=== PATIENT | male | born 1945 | race Two or more races ===

== ENCOUNTER 2022-12-14 05:33 | Inpatient (IN) | payer OTHER ==
[~2022-12-14] VITALS: Ht 162.6 cm; Wt 82.1 kg
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
--- NOTE | 2022-12-14 06:14 | NUR ---
BLOODWORK COLLECTED AND SENT TO LAB
--- NOTE | 2022-12-14 06:14 | NUR ---
EKG COMPLETED AT BEDSIDE
--- NOTE | 2022-12-14 06:21 | NUR ---
URINE COLLECTED AND SENT TO LAB
--- NOTE | 2022-12-14 06:37 | NUR ---
PT TO XR, CT - ACCOMPANIED BY TECH
--- NOTE | 2022-12-14 06:57 | NUR ---
PT RETURNED FROM RADIOLOGY
--- NOTE | 2022-12-14 07:00 | NUR ---
COVID SWAB OBTAINED, PROCESSED, AND RESULTED NEGATIVE
[2022-12-14 07:07] LABS: BILIRUBIN,URINE 1+ (NEGATIVE); COLOR,URINE DARK YELLOW (YELLOW); LEUKOCYTE ESTERASE ,URINE NEGATIVE (NEGATIVE); NITRITE, URINE NEGATIVE (NEGATIVE); PH,URINE 5.5 (5.0-8.0); PROTEIN,URINE 3+ mg/dl (NEGATIVE); UGLUCOSE TRACE mg/dL (NEGATIVE)
--- NOTE | 2022-12-14 07:09 | NUR ---
REPORT GIVEN TO STACIE RODRIGUEZ RN FOR CONTINUITY OF CARE
[2022-12-14 07:19] LABS: BACTERIA,URINE Rare /HPF (None Seen); HYALINE CASTS, URINE Few /LPF (None Seen); SQUAMOUS EPITHELIAL CELL,UR Moderate /HPF (None Seen); WBC,URINE 0-2 /HPF (0-3)
[2022-12-14 07:38] LABS: BASOPHILS % (AUTO) 0.8 % (0.0-2.0); EOSINOPHILS % (AUTO) 1.3 % (0.0-6.0); HEMATOCRIT 41 % (39-51); HEMOGLOBIN 13.4 g/dL (13.5-17.5); MEAN CORPUSCULAR HGB CONC 33 g/dl (31.0-36.0); MEAN CORPUSCULAR VOLUME 98 fL (80-96); MONOCYTES # (AUTO) 0.5 K/uL (0.1-1.30); MONOCYTES % (AUTO) 9.4 % (2.0-12.0); NEUTROPHILS # (AUTO) 4.1 K/uL (1.8-8.9); NEUTROPHILS % (AUTO) 71.5 % (43.0-81.0); PLATELET COUNT (AUTO) 167 K/uL (150-450); RED BLOOD CELL COUNT(AUTO) 4.17 MIL/uL (4.5-6.0); WHITE BLOOD COUNT (AUTO) 5.7 K/uL (4.3-11.0)
[2022-12-14 07:48] LABS: CALCIUM, SERUM 8.8 mg/dL (8.5-10.1); CARBON DIOXIDE 22 mmol/L (21-32); CHLORIDE 109 mmol/L (98-107); CREATININE 1.5 mg/dL (0.6-1.3); GLUCOSE 122 mg/dL (74-106); POTASSIUM 3.8 mmol/L (3.5-5.1); SODIUM SERUM 142 mmol/L (136-145); UREA NITROGEN, BLOOD 34 mg/dL (7-18)
--- NOTE | 2022-12-14 07:53 | NUR ---
MOVE SHEET SUBMITTED.
[2022-12-14 07:55] LABS: ALANINE AMINOTRANSFERASE 34 U/L (12-78); ALBUMIN 2.8 g/dL (3.4-5.0); ALCOHOL, BLOOD 3 mg/dL (0-0); ALKALINE PHOSPHATASE 73 U/L (46-116); ASPARTATE AMINOTRANSFERASE 33 U/L (15-37); BILIRUBIN,DIRECT 0.5 mg/dL (0.0-0.2); BILIRUBIN,TOTAL 1.2 mg/dL (0.2-1.0); TOTAL PROTEIN, SERUM 6.8 g/dL (6.4-8.2)
[2022-12-14] MEDS ORDERED: FUROSEMIDE 20 MG/2 ML VIAL IV ONE (08:00)
[2022-12-14] MEDS ORDERED: ASPIRIN 81 MG TAB.CHEW PO ONE (08:00)
[2022-12-14] MEDS ORDERED: ASPIRIN 81 MG TAB.CHEW ONE (08:03)
[2022-12-14] MEDS ORDERED: FUROSEMIDE 20 MG/2 ML VIAL ONE (08:03)
[2022-12-14] MEDS ORDERED: ALLO300T2 PO (09:30)
[2022-12-14] MEDS ORDERED: TRIA80CR12 TP (09:30)
[2022-12-14] MEDS ORDERED: FURO40TA5 PO (09:30)
[2022-12-14] MEDS ORDERED: CARV3.122 PO (09:30)
[2022-12-14] MEDS ORDERED: OXYB10TA30 PO (09:30)
[2022-12-14] MEDS ORDERED: PANT40TA49 PO (09:30)
[2022-12-14] MEDS ORDERED: ATOR40TA PO (09:30)
[2022-12-14] MEDS ORDERED: CLOP75TA15 PO (09:30)
[2022-12-14] MEDS ORDERED: CHOL100062 PO (09:30)
[2022-12-14] MEDS ORDERED: FERR325T24 PO (09:30)
[2022-12-14] MEDS ORDERED: FINA5TAB11 PO (09:30)
[2022-12-14] MEDS ORDERED: TAMS-12 PO (09:30)
[2022-12-14] MEDS ORDERED: LINA5TAB PO (09:30)
[2022-12-14] MEDS ORDERED: MAGN200T9 PO (09:31)
--- NOTE | 2022-12-14 10:01 | NUR ---
ASSISTED PT TO REST ROOM. AMBULATORY WITH STEADY GAIT.
--- NOTE | 2022-12-14 11:00 | NUR ---
GOT BED 324-1 ADMITTING INFORMED.
--- NOTE | 2022-12-14 11:06 | NUR ---
REPORT GIVEN TO GIGI DEL RIO
[2022-12-14 12:00] VITALS: BP 120/76
--- NOTE | 2022-12-14 12:00 | NUR ---
CDL B DRIVER NOTE PATIENT ADMITTED TO UNIT VIA RNEY AT 1118 ACCOMPANIED BY INVESTMENT BANKING ASSOCIATE WITH DIAGNOSIS OF ALTERED MENTAL STATUS. PT IS A/O X 0-1, ABLE TO MAKE NEEDS KNOWN. PT ORIENTED TO STAFF AND ROOM. V/S TAKEN AND RECORDED. ON ROOM AIR, TOLERATING WELL. NO SIGN OF ACUTE RESPIRATORY DISTRESS NOTED. HOOKED TO PROJECTION WELDING MACHINE OPERATOR WITH CURRENT READING OF SR-63. PHOTOS OF SKIN ISSUES TAKEN AND FILED ON HIS CHART. NOTED BILATERAL EDEMA IN THE LOWER EXTREMITY. IV ACCESS IN LAC #18G, C/D/I. RE-ORIENTED TO STAFF. SAFETY PRECAUTIONS IMPLEMENTED: BED IN LOWEST LOCKED POSITION, CALL LIGHT AND TRAY TABLE WITHIN EASY REACH, SIDE RAILS X 3. WILL CONTINUE TO MONITOR.
[2022-12-14] MEDS ORDERED: ZOLPIDEM TARTRATE 5 MG TABLET PO PRN (14:00)
[2022-12-14] MEDS ORDERED: ACETAMINOPHEN 325 MG TABLET PO PRN (14:00)
[2022-12-14] MEDS ORDERED: ONDANSETRON HCL/PF 4 MG/2 ML VIAL IVP PRN (14:00)
[2022-12-14] MEDS ORDERED: MAGNESIUM HYDROXIDE 30 ML UDC PO PRN (14:00)
[2022-12-14] MEDS ORDERED: MAG HYDROX/AL HYDROX/SIMETH 30 ML UDC PO PRN (14:00)
[2022-12-14] MEDS ORDERED: HYDROCODONE/APAP 5/325MG TABLET PO PRN (14:00)
[2022-12-14 16:00] VITALS: BP 141/74
[2022-12-14] MEDS ORDERED: DEXTROSE 50%-WATER 50 ML DISP.SYRIN IV PRN (18:30)
[2022-12-14] MEDS ORDERED: TRIAMCINOLONE ACETONIDE 0.1% CR 15 GM TUBE TP PRN (18:30)
--- NOTE | 2022-12-14 18:48 | NUR ---
COMPENSATION SPECIALIST CLOSING NOTE PATIENT RESTING IN BED. A/O X 1-2, TAJIK SPEAKER, ABLE TO MAKE NEEDS KNOWN. RE-ORIENTED REGULARLY. ON ROOM AIR, TOLERATED WELL. ON CHIEF ORTHOPTIST WITH CURRENT READING OF SR-70. IV ACCESS IN LAC #18G, SL, C/D/I. NEEDS ATTENDED. SAFETY PRECAUTIONS IMPLEMENTED: BED IN LOWEST LOCKED POSITION, CALL LIGHT AND TRAY TABLE WITHIN EASY REACH, SIDE RAILS X 3. WILL ENDORSE AGATHA TO FIRE EXTINGUISHER INSTALLER.
--- NOTE | 2022-12-14 19:15 | NUR ---
MANAGER PROVIDER RELATIONS NOTES RECEIVED LYING ON BED,SLEEPING WITH HOB ELEVATED,AROUSABLE TO VERBAL/TOUCH STIMULI.BREATHING REGULAR,NOT IN ANY FORM OF DISTRESS.NOTED ATE 100% OF HIS DINNER FOOD.WITH SALINE LOCK RIGHT AC INTACT AND PATENT.FALL RISK,BED ON LOWEST POSITION AND LOCKED,BED ALARM,ASSIST WITH ADL'S.CALL LIGT IN REACH,NEEDS ANTICIPATED.
[2022-12-14 20:00] VITALS: BP 134/84
[2022-12-14] MEDS: HEPARIN SODIUM, PORCINE 5000 UNITS/1 ML VIAL SQ SCH (21:06)
[2022-12-14] MEDS: BLOOD SUGAR DIAGNOSTIC 1 EACH STRIP VI SCH (21:45)
--- NOTE | 2022-12-14 22:00 | NUR ---
FRUIT AND VEGETABLE PARER NOTES ACCU-CHECK BLOOD SUGAR CHECK 186,COVERED WITH HUMULIN R 3UBITS PER SLIDING SCALE.
[2022-12-14] MEDS: *INSULIN REGULAR(HUMULIN R)HUM 100 UNIT/ML VIAL SQ PRN (22:10)
[2022-12-14] MEDS: Z GUARD REMEDY 4 OZ OINT TP PRN (22:11)
--- NOTE | 2022-12-14 23:12 | NUR ---
HAND BOX COVERER NOTES SR- 86 ON TELE MONITOR.CALM AND QUIET ON BED,BREATHING NON LABORED.DUE MEDS ADMINISTERED.ENDORSED TO SOHAIL DEL RIO FOR AGATHA.
--- NOTE | 2022-12-14 23:30 | NUR ---
CONCHE OPERATOR NOTE RECEIVED PATIENT FROM IMAN RN; PATIENT IN BED, A/O X 2-3, ABLE TO MAKE NEEDS KNOWN, THAI SPEAKING BUT CAN UNDERSTAND LITTLE MOROCCAN; STABLE ON ROOM AIR BREATHING EVENLY AND NO S/S OF DISTRESS NOTED; HOOKED TO QA REVIEWER CURRENTLY READING SINUS RHYTHM; WITH IV ACCESS ON RAC G#18 SALINE LOCK; HOB ELEVATED, MAINTAINED ON ASPIRATION PRECAUTION; SAFETY MEASURES IMPLEMENTED, BED IN LOW AND LOCKED POSITION, SIDE RAILS UP X 4, BED ALARM ON, CALL LIGHT WITHIN REACH; WILL CONTINUE TO MONITOR THROUGHOUT SHIFT
[2022-12-15 00:08] VITALS: BP 127/90
[2022-12-15 04:58] VITALS: BP 129/91
[2022-12-15] MEDS: INSULIN REGULAR, HUMAN 100 UNIT/ML 3 ML VIAL SQ PRN ×2 (06:22→12:08)
[2022-12-15] MEDS: BLOOD SUGAR DIAGNOSTIC 1 EACH STRIP VI SCH ×4 (06:33→21:40)
--- NOTE | 2022-12-15 06:50 | NUR ---
DINKEY BRAKEMAN CLOSING NOTE PATIENT IN BED, A/O X 2-3, ABLE TO MAKE NEEDS KNOWN, URDU SPEAKING BUT CAN UNDERSTAND LITTLE PAKISTANI; STABLE ON ROOM AIR BREATHING EVENLY AND NO S/S OF DISTRESS NOTED; HOOKED TO TITLE ASSISTANT CURRENTLY READING SINUS RHYTHM; WITH IV ACCESS ON RAC G#18 SALINE LOCK, INTACT AND PATENT; HOB ELEVATED, MAINTAINED ON ASPIRATION PRECAUTION; ADMINISTERED MEDICATIONS PRESCRIBED; PATIENT'S NEEDS ATTENDED; MONITORED PATIENT ACCORDINGLY; SAFETY MEASURES IMPLEMENTED, BED IN LOW AND LOCKED POSITION, SIDE RAILS UP X 4, BED ALARM ON, CALL LIGHT WITHIN REACH; WILL ENDORSE TO AM NURSE FOR AGATHA.
--- NOTE | 2022-12-15 07:20 | NUR ---
MARTIAL ARTS INSTRUCTOR OPENING NOTE PATIENT WAS RECEIVED IN BED ASLEEP WITH VISIBLE CHEST EXTENSION. AROUSAL TO VERBAL STIMULI, A/O X2 UKRAINIAN SPEAKING, UNDERSTANDING LITTLE MAURITANIAN, ABLE TO RESPOND TO QUESTION/ COMMANDS. NO S/S OF PAIN NOTED AT THIS TIME. ON ROOM AIR, IN HIGH FOWLERS. NO S/S OF SOB. IV ACCESS RAC G18, INTACT AND PATENT. PATIENT WITH EXTERNAL MONITOR WITH CURRENT READING OF SR 72 , NO CARDIAC DISTRESSED NOTED. FALL AND SAFETY PRECAUTIONS IN PLACE: BED AT THE LOWEST POSITION, LOCKED WITH SRX2 AND CALL LIGHT WITHIN REACH.
[2022-12-15 07:22] LABS: BASOPHILS % (AUTO) 0.6 % (0.0-2.0); EOSINOPHILS % (AUTO) 0.8 % (0.0-6.0); HEMATOCRIT 41 % (39-51); HEMOGLOBIN 13.3 g/dL (13.5-17.5); LYMPHOCYTES # (AUTO) 0.8 K/uL (0.8-4.8); LYMPHOCYTES % (AUTO) 14.9 % (20.0-44.0); MEAN CORPUSCULAR HGB CONC 32 g/dl (31.0-36.0); MEAN CORPUSCULAR VOLUME 101 fL (80-96); MONOCYTES # (AUTO) 0.4 K/uL (0.1-1.30); MONOCYTES % (AUTO) 7.9 % (2.0-12.0); NEUTROPHILS # (AUTO) 4.2 K/uL (1.8-8.9); NEUTROPHILS % (AUTO) 75.8 % (43.0-81.0); PLATELET COUNT (AUTO) 171 K/uL (150-450); RED BLOOD CELL COUNT(AUTO) 4.09 MIL/uL (4.5-6.0); WHITE BLOOD COUNT (AUTO) 5.6 K/uL (4.3-11.0)
[2022-12-15] MEDS ORDERED: PANTOPRAZOLE 40 MG TABLET.DR PO SCH (07:30)
[2022-12-15 07:59] LABS: SERUM AMMONIA 11 umol/L (11-32)
[2022-12-15 08:00] VITALS: BP 134/88
[2022-12-15 08:11] LABS: CHOLESTEROL 161 mg/dL (<200); HDL CHOLESTEROL 59 mg/dL (40-60); LDL 97 mg/dL (0-99); THYROID STIMULATING HORMONE 9.546 uIU/mL (0.358-3.74); TRIGLYCERIDES 69 mg/dL (30-150)
[2022-12-15 08:13] LABS: CALCIUM, SERUM 8.7 mg/dL (8.5-10.1); CARBON DIOXIDE 23 mmol/L (21-32); CHLORIDE 105 mmol/L (98-107); CREATININE 1.4 mg/dL (0.6-1.3); GLUCOSE 129 mg/dL (74-106); MAGNESIUM 2.2 mg/dL (1.8-2.4); PHOSPHORUS 4.4 mg/dL (2.5-4.9); POTASSIUM 3.7 mmol/L (3.5-5.1); SODIUM SERUM 137 mmol/L (136-145); UREA NITROGEN, BLOOD 33 mg/dL (7-18)
[2022-12-15] MEDS: PANTOPRAZOLE 40 MG TABLET.DR PO SCH (08:25)
[2022-12-15] MEDS: ALLOPURINOL 100 MG TABLET PO SCH (08:26)
[2022-12-15] MEDS: CHOLECALCIFEROL 1,000 UNIT TABLET (VIT D3) PO SCH (08:26)
[2022-12-15] MEDS: ASPIRIN 81 MG TAB.CHEW PO SCH (08:27)
[2022-12-15] MEDS: FINASTERIDE (5 MG) 5 MG TABLET PO SCH (08:28)
[2022-12-15] MEDS: ATORVASTATIN 40 MG TABLET PO SCH (08:28)
[2022-12-15] MEDS: LINAGLIPTIN 5 MG TABLET PO SCH (08:28)
[2022-12-15] MEDS: OXYBUTYNIN CHLORIDE ER 5 MG TAB PO SCH (08:28)
[2022-12-15] MEDS: CLOPIDOGREL BISULFATE 75 MG TABLET PO SCH (08:28)
[2022-12-15] MEDS: CARVEDILOL 3.125 MG TABLET PO SCH ×2 (08:29→17:10)
[2022-12-15] MEDS ORDERED: FUROSEMIDE 40 MG/4 ML VIAL IV SCH (09:00)
[2022-12-15] MEDS ORDERED: MAGNESIUM OXIDE 200 MG PO SCH (09:00)
[2022-12-15] MEDS ORDERED: FERROUS SULFATE (325 MG) 325 MG/TAB TABLET PO SCH (09:00)
--- NOTE | 2022-12-15 09:00 | NUR ---
CHAIR FRAME BUILDER- CRITICAL LAB RESULT CRITICAL LAB RESULT WAS REPORTED BY BELEM Alex @0817, TROPONIN 194. LAB WAS VERBALLY REPORTED TO DR. DENSON AND AND VERBAL ACKNOWLEDGMENT WAS MADE.
--- NOTE | 2022-12-15 09:00 | NUR ---
LLAIT NOTE- NON ADMIN MEDICATION HELD ALL B/P MEDICATION. PATIENT HAD HEMODIALYSIS PROCEDURE SCHEDULED TODAY. B/P 135/48. Addendum: 12/15/22 at 1026 by LLUVIA BINGHAM LVN CORRECTION WRONG PATIENT.
[2022-12-15] MEDS: TAMSULOSIN 0.4 MG CAP.SR.24H PO SCH ×2 (09:45→09:50)
[2022-12-15] MEDS: HEPARIN SODIUM, PORCINE 5000 UNITS/1 ML VIAL SQ SCH ×2 (09:46→21:19)
--- NOTE | 2022-12-15 09:50 | NUR ---
WEB DEVELOPER NOTE- NOT ADMIN MEDICATION PATIENT REFUSED MEDICATION TAMSULOSIN. EXPLAINED BENEFIT OF MEDICATION PATIENT STILL REFUSED. WASTED MEDICATION IN MEDICATION WASTE ROOM. WASTE WITNESS BY QUANG ARAGON.
[2022-12-15] MEDS ORDERED: POTASSIUM CHLORIDE 20 MEQ TAB.PRT.SR PO SCH (11:00)
[2022-12-15] MEDS: FUROSEMIDE 40 MG/4 ML VIAL IV SCH ×3 (11:23→18:56)
[2022-12-15 12:00] VITALS: BP_SYST 107
[2022-12-15] MEDS: POTASSIUM CHLORIDE 20 MEQ POWDER PACKET PO SCH ×3 (12:03→14:56)
[2022-12-15 16:00] VITALS: BP 120/81
--- NOTE | 2022-12-15 19:00 | NUR ---
RN OPENING NOTE PT IS AWAKE, SITTING IN BED. A/O 3, GARBLED SPEECH AND COMMUNICATE THRU WRITING,. PT IS IN RA TOLERATING WELL, BREATHING EVEN AND UNLABORED AT THIS TIME. PT IV PRESENT IS ON LEFT AC #18G SALINE LOCK. PATENT, INTACT AND FLUSHES WELL W/ NO S&SX OF INFILTRATION @ SITE NOTED. SAFETY MEASURES IN PLACE. BED IN LOWEST AND LOCKED POSITION. SIDE RAILS X 2. BEDSIDE TABLE AND CALL LIGHT IS EASY REACH. WILL CONTINUE TO MOINTOR PT ACCORDINGLY. Addendum: 12/16/22 at 0150 by KRISTIAN CORREA RN WRONG PATIENT.
--- NOTE | 2022-12-15 19:00 | NUR ---
RN OPENING NOTE PT IS AWAKE, SITTING IN BED. A/O 1-2, MOHAWK SPEAKING. PT IS IN RA TOLERATING WELL, BREATHING EVEN AND UNLABORED AT THIS TIME. PT IV PRESENT IS ON RIGHT AC #18G SALINE LOCK. PATENT, INTACT AND FLUSHES WELL W/ NO S&SX OF INFILTRATION @ SITE NOTED. PT IS ON URINAL W/ URINE OUTPUT 250CC. SAFETY MEASURES IN PLACE, BED IN LOWEST AND LOCKED POSITION. SIDE RAILS X 2. BEDSIDE TABLE AND CALL LIGHT IS EASY REACH. WILL CONTINUE TO MONITOR PT ACCORDINGLY.
--- NOTE | 2022-12-15 19:02 | NUR ---
SUMMER LAW CLERK CLOSING NOTE PATIENT IS AWAKE IN BED. ON ROOM AIR, A/Ox2 SWEDISH SPEAKING, UNDERSTANDING LITTLE HUNGARIAN, ABLE TO RESPOND TO QUESTIONS/ COMMANDS. NO S/S OF PAIN NOTED AT THIS TIME. IN HIGH FOWLERS. LABORED BREATHING NOTED, O2 97%. BLE SWELLING, COLD TO TOUCHED, PURPLISH COLOR, WAS INFORMED AND ACKNOWLEDGE. BLE DOPPLER ORDERED. IV ACCESS RAC G18, INTACT AND PATENT. PATIENT WITH EXTERNAL MONITOR WITH CURRENT READING OF SR 62. FALL AND SAFETY PRECAUTIONS MAINTAINED: BED AT THE LOWEST POSITION, LOCKED WITH SRX2 AND CALL LIGHT WITHIN REACH. ENDORSED TO THE PLUG GROWER NURSE.
[2022-12-15 20:00] VITALS: BP 115/80
[2022-12-15] MEDS: *INSULIN REGULAR(HUMULIN R)HUM 100 UNIT/ML VIAL SQ PRN (21:44)
[2022-12-16] VITALS (7 sets, daily range): BP systolic 104–127; BP diastolic 56–95
[2022-12-16] MEDS: BLOOD SUGAR DIAGNOSTIC 1 EACH STRIP VI SCH ×4 (06:31→22:15)
[2022-12-16] MEDS: INSULIN REGULAR, HUMAN 100 UNIT/ML 3 ML VIAL SQ PRN ×2 (06:35→12:25)
--- NOTE | 2022-12-16 06:41 | NUR ---
RN CLOSING NOTE PT IS ASLEEP & RESTING COMFORTABLY IN BED. A/O 1-2, RESPONSIVE AND FOLLOWS VERBAL COMMAND. PT IS IN 2L O2 VIA NASAL CANNULA, TOLERATING WELL, BREATHING EVEN AND UNLABORED AT THIS TIME. PT IV PRESENT IS ON RIGHT AC #18G SALINE LOCK. PATENT, INTACT AND FLUSHES WELL W/ NO S&SX OF INFILTRATION @ SITE NOTED. PT IS ON TELE MONITOR WITH CURRENT READING OF SINUS RHYTHM HR 63. PT IS ON URINAL W/ URINE OUTPUT 450 CC & 2 VOIDS @ THE RESTROOM. ADMINISTERED MEDICATION ACCORDINGLY PER MD'S ORDER. SAFETY MEASURES IN PLACE, BED IN LOWEST AND LOCKED POSITION. SIDE RAILS X 2. BEDSIDE TABLE AND CALL LIGHT IS EASY REACH. WILL ENDORSE TO THE NEXT SHIFT FOR AGATHA.
[2022-12-16 07:01] LABS: BILIRUBIN,URINE NEGATIVE (NEGATIVE); COLOR,URINE YELLOW (YELLOW); LEUKOCYTE ESTERASE ,URINE NEGATIVE (NEGATIVE); NITRITE, URINE NEGATIVE (NEGATIVE); PH,URINE 5.5 (5.0-8.0); PROTEIN,URINE NEGATIVE (NEGATIVE); UGLUCOSE NEGATIVE (NEGATIVE); UROBILINOGEN,URINE 0.2 EU/dL (0.2)
[2022-12-16 07:25] LABS: BASOPHILS % (AUTO) 0.6 % (0.0-2.0); EOSINOPHILS % (AUTO) 0.8 % (0.0-6.0); HEMATOCRIT 41 % (39-51); HEMOGLOBIN 13.4 g/dL (13.5-17.5); LYMPHOCYTES # (AUTO) 0.8 K/uL (0.8-4.8); LYMPHOCYTES % (AUTO) 16.6 % (20.0-44.0); MEAN CORPUSCULAR HGB CONC 33 g/dl (31.0-36.0); MEAN CORPUSCULAR VOLUME 101 fL (80-96); MONOCYTES # (AUTO) 0.3 K/uL (0.1-1.30); MONOCYTES % (AUTO) 7.1 % (2.0-12.0); NEUTROPHILS # (AUTO) 3.7 K/uL (1.8-8.9); NEUTROPHILS % (AUTO) 74.9 % (43.0-81.0); PLATELET COUNT (AUTO) 145 K/uL (150-450); WHITE BLOOD COUNT (AUTO) 4.9 K/uL (4.3-11.0)
[2022-12-16] MEDS: PANTOPRAZOLE 40 MG TABLET.DR PO SCH ×2 (07:30→08:46)
--- NOTE | 2022-12-16 07:30 | NUR ---
BILLING SPECIALIST OPENING NOTE Patient in bed, awake. A/O x 1-2, Luxembourgish speaking. On O2 at 2 LPM via NC, breathing evenly and unlabored. No SOB or s/s of distress noted. IV access on RAC #18 SL, intact and patent. On tele monitoring showing SR, HR on the 60's. BLE swelling noted. Safety precautions in place: bed in low, locked position; siderails up x 2; call light within reach. Will continue to monitor.
--- NOTE | 2022-12-16 07:45 | NUR ---
RN NOTE Received critical value from December, from lab, Troponin level is 183. Dr. Mak notified. No new orders at this time.
[2022-12-16 07:51] LABS: BACTERIA,URINE None seen /HPF (None Seen); RBC,URINE 0-2 /HPF (0-2); SQUAMOUS EPITHELIAL CELL,UR Rare /HPF (None Seen); WBC,URINE 0-2 /HPF (0-3)
[2022-12-16 08:21] LABS: ALANINE AMINOTRANSFERASE 26 U/L (12-78); ALBUMIN 2.6 g/dL (3.4-5.0); ALKALINE PHOSPHATASE 68 U/L (46-116); ASPARTATE AMINOTRANSFERASE 26 U/L (15-37); BILIRUBIN,TOTAL 0.9 mg/dL (0.2-1.0); CALCIUM, SERUM 8.7 mg/dL (8.5-10.1); CARBON DIOXIDE 25 mmol/L (21-32); CHLORIDE 103 mmol/L (98-107); CREATININE 1.8 mg/dL (0.6-1.3); GLUCOSE 173 mg/dL (74-106); IRON, SERUM 64 ug/dl (50-175); MAGNESIUM 2.2 mg/dL (1.8-2.4); PHOSPHORUS 4.5 mg/dL (2.5-4.9); POTASSIUM 3.6 mmol/L (3.5-5.1); SODIUM SERUM 134 mmol/L (136-145); TOTAL IRON BINDING CAPACITY 205 ug/dl (250-450); TOTAL PROTEIN, SERUM 6.4 g/dL (6.4-8.2); UREA NITROGEN, BLOOD 32 mg/dL (7-18)
[2022-12-16] MEDS: CHOLECALCIFEROL 1,000 UNIT TABLET (VIT D3) PO SCH ×2 (08:45→09:00)
[2022-12-16] MEDS: LINAGLIPTIN 5 MG TABLET PO SCH (08:46)
[2022-12-16] MEDS: FUROSEMIDE 100 MG/10 ML VIAL IV SCH ×3 (08:46→16:40)
[2022-12-16] MEDS: ASPIRIN 81 MG TAB.CHEW PO SCH (08:47)
[2022-12-16] MEDS: ATORVASTATIN 40 MG TABLET PO SCH (08:47)
[2022-12-16] MEDS: CLOPIDOGREL BISULFATE 75 MG TABLET PO SCH (08:47)
[2022-12-16] MEDS: FINASTERIDE (5 MG) 5 MG TABLET PO SCH (08:47)
[2022-12-16] MEDS: OXYBUTYNIN CHLORIDE ER 5 MG TAB PO SCH (08:47)
[2022-12-16] MEDS: ALLOPURINOL 100 MG TABLET PO SCH (08:47)
[2022-12-16] MEDS: CARVEDILOL 3.125 MG TABLET PO SCH ×2 (08:48→16:40)
[2022-12-16] MEDS: HEPARIN SODIUM, PORCINE 5000 UNITS/1 ML VIAL SQ SCH ×2 (08:50→21:43)
[2022-12-16] MEDS: TAMSULOSIN 0.4 MG CAP.SR.24H PO SCH (08:54)
--- NOTE | 2022-12-16 10:00 | NUR ---
RN NOTE Patient refused Flomax, Vitamin D3, and Protonix medications. Explained the importance of taking these medications but patient still refused, he states "I don't want to take any more meds.".
[2022-12-16 11:09] LABS: FERRITIN 868 ng/mL (8-388)
--- NOTE | 2022-12-16 18:53 | NUR ---
RN OPENING NOTE Patient in bed, resting. A/O x 1-2, Kiswahili speaking. On O2 at 2 LPM via NC, breathing evenly and unlabored. No SOB or s/s of distress noted. IV access on RAC #18 SL, intact and patent. BLE swelling noted, BLE doppler done, negative for DVT. All needs attended to. Due meds given. Safety precautions in place: bed in low, locked position; siderails up x 2; call light within reach. Will endorse to regional vice president surgical sales nurse for AGATHA. Addendum: 12/16/22 at 1855 by CYNDI NEWBY RN CORRECTION: CLOSING NOTE
--- NOTE | 2022-12-16 18:55 | NUR ---
RN CLOSING NOTE Patient in bed, resting. A/O x 1-2, Wolof speaking. On O2 at 2 LPM via NC, breathing evenly and unlabored. No SOB or s/s of distress noted. IV access on RAC #18 SL, intact and patent. BLE swelling noted, BLE doppler done, negative for DVT. All needs attended to. Due meds given. Safety precautions in place: bed in low, locked position; siderails up x 2; call light within reach. Will endorse to mini shifter nurse for AGATHA.
--- NOTE | 2022-12-16 19:30 | NUR ---
TELE MIRROR DEPARTMENT SUPERVISOR INITIAL NOTES Received report from am nurse Cindy and seen patient in bed resting with eyes closed but aroused easily , denies any pain or any discomfort, not in any acute distress noted. Skin warm and dry to touch. Tele monitor just put it back because its been out since i got the report. Pt speak only Lithuanian but understood simple Jordanian . Re-oriented where he at and how to used the call light system . Bed in low and lock in position with side rails x3 up and bed alarms set for safety. Kept him warm and comfortable at all times. Place call light at reach. Will continue monitoring.
--- NOTE | 2022-12-16 19:50 | NUR ---
TELE TEACHER'S ASSISTANT NOTES Notify Reese Holliday /JAY regarding the Rhythm of the patient on tele monitor A-Flutter as new onset . Per tele monitor pt has been SR the whole day and since admission. EKG ordered too. will continue monitoring.
--- NOTE | 2022-12-16 20:08 | NUR ---
TELE DIRECTOR CPG NOTES EKG DONE AND RESULT CAME OUT A-FLUTTER , NOTIFY JALEEL PUENTE FOR THE RESULT .
[2022-12-16] MEDS ORDERED: AMIODARONE 450 MG in IV D5W 241 ML IV PRN (20:30)
[2022-12-16] MEDS ORDERED: AMIODARONE 150 MG in IV D5W 100 ML IV ONE ×2 (20:30→22:30)
--- NOTE | 2022-12-16 21:20 | NUR ---
TELE INSPECTOR CRYSTAL NOTES. Informed MD consumer marketing analyst regarding ordered Amiodarone IVPB per pharmacy protocol we don't give amiodarone drip . and also patient informed him the heart rate of the patient 60-65 per monitor A FLUTTER. EKG result send to him as well.
--- NOTE | 2022-12-16 21:25 | NUR ---
telelvn amniodarone drip discontinued as ordered. continued monitoring
[2022-12-16] MEDS: *INSULIN REGULAR(HUMULIN R)HUM 100 UNIT/ML VIAL SQ PRN (22:16)
--- NOTE | 2022-12-16 22:16 | NUR ---
TELE PHILOSOPHY FACULTY NOTES BLOOD SUGAR CHECKED DONE CAME OUT 142, INSULIN 2 UNITS GIVEN NEMO SQ ORDERED, NO SIGNS OF HYPO/HYPER GLYCEMIA NOTED. PT REFUSED TO BE CLEANED UP JUST COVERED WITH WARM BLANKET. TELE A-FLUTTER PER MONITOR.
--- NOTE | 2022-12-16 22:30 | NUR ---
TELELVN TRANSFERRED TO [facility] ORDERED WITH ALL PERSONAL BELONGINGS WITH CONTINUED MONITORING, PATIENT REMAINS ALERT AND ORIENTED. ENDORSED TO RECEIVING RN FOR CONTINUITY OF CARE.
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
--- NOTE | 2022-12-16 23:15 | NUR ---
RN NOTES NOTIFIED PRADIP PUENTE REGARDING PATIENT LATEST V/S BP- 110/66, HR- 65 STILL AFLUTTER ON MONITOR. PER PRADIP MARMOLEJO OK TO START THE AMIODARONE LOADING DOSE AND DRIP.
[2022-12-16] MEDS: AMIODARONE 450 MG in IV D5W 241 ML IV PRN (23:56)
[2022-12-17] VITALS: BP 103/68
--- NOTE | 2022-12-17 01:46 | NUR ---
RN NOTES NOTIFIED PRADIP BRAUN REGARDING
--- NOTE | 2022-12-17 01:47 | NUR ---
RN NOTES NOTIFIED PRADIP PUENTE, REGARDING PT. NEW ORDER ELIQUIS 5MG PO BID, PT ALREADY HAVE HEPARIN 5000 UNITS SQ, PER PHARMACY PT CANNOT HAVE BOTH. PER PRADIP PUENTE DC HEPARIN 5000 UNITS SQ NOTED AND CARRIED OUT.
[2022-12-17 04:00] VITALS: BP 94/67
[2022-12-17] MEDS: AMIODARONE 450 MG in IV D5W 241 ML IV PRN ×2 (06:16→21:03)
--- NOTE | 2022-12-17 07:00 | NUR ---
RECEIVED REPORT FROM ILENE SERRA. WILL CONTINUE PLAN OF CARE.
[2022-12-17] MEDS: BLOOD SUGAR DIAGNOSTIC 1 EACH STRIP VI SCH ×4 (07:30→22:10)
[2022-12-17 08:00] VITALS: BP 115/72
[2022-12-17] MEDS: CHOLECALCIFEROL 1,000 UNIT TABLET (VIT D3) PO SCH (08:35)
[2022-12-17] MEDS: OXYBUTYNIN CHLORIDE ER 5 MG TAB PO SCH (08:35)
[2022-12-17] MEDS: PANTOPRAZOLE 40 MG TABLET.DR PO SCH (08:35)
[2022-12-17] MEDS: ALLOPURINOL 100 MG TABLET PO SCH (08:35)
[2022-12-17] MEDS: CLOPIDOGREL BISULFATE 75 MG TABLET PO SCH (08:35)
[2022-12-17] MEDS: TAMSULOSIN 0.4 MG CAP.SR.24H PO SCH (08:35)
[2022-12-17] MEDS: ASPIRIN 81 MG TAB.CHEW PO SCH (08:36)
[2022-12-17] MEDS: FINASTERIDE (5 MG) 5 MG TABLET PO SCH (08:36)
[2022-12-17] MEDS: CARVEDILOL 3.125 MG TABLET PO SCH ×2 (08:37→17:26)
[2022-12-17] MEDS: ATORVASTATIN 40 MG TABLET PO SCH (08:37)
[2022-12-17] MEDS: LINAGLIPTIN 5 MG TABLET PO SCH (08:37)
[2022-12-17] MEDS: INSULIN REGULAR, HUMAN 100 UNIT/ML 3 ML VIAL SQ PRN ×3 (08:48→17:39)
[2022-12-17] MEDS ORDERED: APIXABAN 5 MG TABLET PO SCH (09:00)
[2022-12-17] MEDS ORDERED: BUMETANIDE INJ 16 MG in IV NS 0.9% 16 ML IV ONE (09:30)
[2022-12-17] MEDS: POTASSIUM CHLORIDE 20 MEQ TAB.PRT.SR PO SCH ×2 (10:09→11:14)
[2022-12-17] MEDS ORDERED: IV NS 0.9% 250 ML IV PRN (10:30)
--- NOTE | 2022-12-17 10:42 | NUR ---
WOUND CARE CONSULT: PT PRESENTS WITH DRY BLISTERS TO LEFT LOWER LEG, PURPLISH COLOR TO RT TOES, GENERALIZED EDEMA AND RASH TO GROIN FOLDS, PERINEUM AND BUTTOCKS, ALL PRESENT ON ADMISSION. RECOMMENDATIONS MADE FOR SKIN PROTECTION. DISCUSSED WITH NURSING STAFF. DR TIMMONS CALLED FOR DPM CONSULT. MD IN AGREEMENT WITH PLAN OF CARE.
[2022-12-17 12:00] VITALS: BP 107/69
[2022-12-17 16:00] VITALS: BP 147/63
[2022-12-17] MEDS: CLOTRIMAZOLE 1% 15 GM TUBE TP SCH (17:26)
[2022-12-17] MEDS: APIXABAN 5 MG TABLET PO SCH (17:28)
--- NOTE | 2022-12-17 18:40 | NUR ---
PATIENT REMAINS IN ROOM. ALERT AND ORIENTED 2-3. A FLUTTER ON THE MONITOR, ON AMIODARONE DRIP. REFUSED MARISCAL AND CONDOM CATHETER. WILL ONLY USE BEDSIDE URINAL. IV ACCESS MAINTAINED ON RIGHT AC 18 AND RIGHT FOREARM 20. SAFETY MEASURES IMPLEMENTED WILL ENDORSE TO NIGHTSHIFT QUANG SERRA FOR CONTINUATION OF CARE.
--- NOTE | 2022-12-17 19:20 | NUR ---
RN NOTES RECEIVED PATIENT ON BED, A/O X 2-3 . ON NASAL CANULA @ 2LPM. NO SOB NOTED RESPIRATORY EVEN AND UNLABORED. NO SOB NOTED. NO S/S OF DISTRESS NOTED. AFEBRILE. NOTED WITH RAC #18 AND RIGHT FOREARM #20 PERIPHERAL LINE, FLUSHED WITH NS, NO S/S OF INFILTRATION NOTED. RUNNING WITH AMIODARONE DRIP @ 0.5 MG/MIN (16.66 ML/HR). ALL SAFETY PRECAUTION PROVIDED. BED IN LOWEST POSITION, LOCKED. CALL LIGHT WITH IN REACH.
[2022-12-17 20:00] VITALS: BP 114/67
[2022-12-17] MEDS: *INSULIN REGULAR(HUMULIN R)HUM 100 UNIT/ML VIAL SQ PRN (22:11)
--- NOTE | 2022-12-17 22:11 | NUR ---
RN NOTES NOTED WITH BLOOD SUGAR 121 mg/dL, NO INSULIN COVERAGE PER SLIDING SCALE. NO S/S OF HYPOGLYCEMIA NOTED.
[2022-12-18] VITALS (7 sets, daily range): BP systolic 94–118; BP diastolic 34–67
--- NOTE | 2022-12-18 00:30 | NUR ---
RN NOTES NOTIFIED PRADIP MAX REGARDING PATIENT AMIODARONE DRIP, WE FINISHED THE 24 HRS PROTOCOL, PATIENT STILL AFLUTTER, HR- 80'S, BP- 109/67. PER PRADIP MAZARIEGOS, CONTINUE IT.
--- NOTE | 2022-12-18 07:10 | NUR ---
RN NOTES RECEIVED PATIENT ON BED, A/O X 4 KAZAKH SPEAKING . . NO SOB NOTED RESPIRATION IS EVEN AND UNLABORED. NO S/S OF DISTRESS NOTED. AFEBRILE. NOTED WITH RAC #18 AND RIGHT FOREARM #20 PERIPHERAL LINE, FLUSHED WITH NS, NO S/S OF INFILTRATION NOTED. RUNNING WITH AMIODARONE DRIP @ 0.5 MG/MIN (16.66 ML/HR). ALL SAFETY PRECAUTION PROVIDED. BED IN LOWEST POSITION, LOCKED. CALL LIGHT WITH IN REACH.
--- NOTE | 2022-12-18 07:55 | NUR ---
RN NOTES: SEEN BY DR QUINONES WHO DISCONTINUE AMIODARONE JANETT
[2022-12-18] MEDS: PANTOPRAZOLE 40 MG TABLET.DR PO SCH (08:03)
[2022-12-18] MEDS: BLOOD SUGAR DIAGNOSTIC 1 EACH STRIP VI SCH ×4 (08:04→21:39)
[2022-12-18] MEDS: ALLOPURINOL 100 MG TABLET PO SCH (08:14)
[2022-12-18] MEDS: CHOLECALCIFEROL 1,000 UNIT TABLET (VIT D3) PO SCH (08:14)
[2022-12-18] MEDS: TAMSULOSIN 0.4 MG CAP.SR.24H PO SCH (08:15)
[2022-12-18] MEDS: ATORVASTATIN 40 MG TABLET PO SCH (08:15)
[2022-12-18] MEDS: LINAGLIPTIN 5 MG TABLET PO SCH (08:15)
[2022-12-18] MEDS: ASPIRIN 81 MG TAB.CHEW PO SCH (08:15)
[2022-12-18] MEDS: OXYBUTYNIN CHLORIDE ER 5 MG TAB PO SCH (08:15)
[2022-12-18] MEDS: CLOPIDOGREL BISULFATE 75 MG TABLET PO SCH (08:15)
[2022-12-18] MEDS: APIXABAN 5 MG TABLET PO SCH ×2 (08:18→17:51)
[2022-12-18] MEDS: INSULIN REGULAR, HUMAN 100 UNIT/ML 3 ML VIAL SQ PRN ×2 (08:21→12:36)
[2022-12-18] MEDS: FINASTERIDE (5 MG) 5 MG TABLET PO SCH (08:22)
[2022-12-18] MEDS: CARVEDILOL 3.125 MG TABLET PO SCH ×2 (09:00→17:00)
[2022-12-18] MEDS: Z GUARD REMEDY 4 OZ OINT TP PRN (09:27)
[2022-12-18] MEDS: CLOTRIMAZOLE 1% 15 GM TUBE TP SCH ×2 (09:28→17:49)
--- NOTE | 2022-12-18 12:35 | NUR ---
Responsible libertarian: SW called the following contact to try to identify pt.'s responsible libertarian as pt. is confused: [phone]- number disconnected [phone] wrong number [phone] disconnected [phone] number disconnected
--- NOTE | 2022-12-18 19:30 | NUR ---
COP EXAMINER CLOSING NOTES: PATIENT REMAINS IN ROOM. ALERT AND ORIENTED 3-4. A FLUTTER ON THE MONITOR,. IV ACCESS MAINTAINED ON RIGHT AC 18 AND RIGHT FOREARM 20. PT REFUSING LIFE VEST AND HE TOOK IT OUT.ALSO THERE IS BROKEN PART CAME WITH THE LIFE VEST PER THE PERSON WHO DELIVER IT HE ORDERED DIFFERENT PIECE. WILL COME AFTER MIDNIGHT.SAFETY MEASURES IMPLEMENTED WILL ENDORSE TO NIGHTSHIFT RN FOR CONTINUATION OF CARE.
--- NOTE | 2022-12-18 20:00 | NUR ---
PULMONARY FUNCTION TECHNOLOGIST NOTES PATIENT RECEIVED IN BED ALERT AND ORIENTED 2-3. A FLUTTER -64 ON THE MONITOR. USES BEDSIDE URINAL. IV ACCESS MAINTAINED ON RIGHT AC 18 AND RIGHT FOREARM 20. LIFEVEST REFUSES BY PTS AND NOT WORKING LIFEVEST AGENT WILL COME PRATEEK TO REPLACE THE VEST FINISHER . SAFETY MEASURES IMPLEMENTED WILL ENDORSE TO MAGDALENA DEL RIO FOR CONTINUITY OF CARE .
--- NOTE | 2022-12-18 21:15 | NUR ---
RN NOTE RECEIVED REPORT FROM QUANG GARCIA. PT IN BED, ASLEEP. NO S/SX OF ACUTE RESPI DISTRESS NOTED AT THIS TIME. WILL CONTINUE TO MONITOR PT.
[2022-12-18] MEDS: *INSULIN REGULAR(HUMULIN R)HUM 100 UNIT/ML VIAL SQ PRN (21:47)
[2022-12-19] VITALS: BP 99/60
[2022-12-19 04:00] VITALS: BP 104/69
--- NOTE | 2022-12-19 06:01 | NUR ---
DIRECTOR OUTCOMES CLOSING NOTE NO SIGNIFICANT CHANGE T/O THE NIGHT. PT IN STABLE CONDITION. ALL DUE MEDS GIVEN. ALL NEEDS MET. PM CARE DONE. TURNED AND REPOSITIONED. WILL ENDORSE TO AM SHIFT NURSE FOR AGATHA.
--- NOTE | 2022-12-19 07:27 | NUR ---
EMT DISPATCHER NOTES PATIENT RECEIVED IN BED ALERT AND ORIENTED 2-3. A FLUTTER -62 ON THE MONITOR. USES BEDSIDE URINAL. IV ACCESS MAINTAINED On RIGHT FOREARM 20. INTACT AND FLUSHED WELL SAFETY MEASURES IMPLEMENTED BOTH LEGS,ON 2L NC NO SOB NOTED AT THIS TIME ,BED IN LOWEST ND LOCKED POSITION , WILL MONITOR
[2022-12-19 08:00] VITALS: BP 105/72
[2022-12-19] MEDS: ASPIRIN 81 MG TAB.CHEW PO SCH (08:24)
[2022-12-19] MEDS: TAMSULOSIN 0.4 MG CAP.SR.24H PO SCH (08:24)
[2022-12-19] MEDS: OXYBUTYNIN CHLORIDE ER 5 MG TAB PO SCH (08:24)
[2022-12-19] MEDS: CARVEDILOL 3.125 MG TABLET PO SCH ×2 (08:24→17:02)
[2022-12-19] MEDS: ATORVASTATIN 40 MG TABLET PO SCH (08:24)
[2022-12-19] MEDS: PANTOPRAZOLE 40 MG TABLET.DR PO SCH (08:25)
[2022-12-19] MEDS: CHOLECALCIFEROL 1,000 UNIT TABLET (VIT D3) PO SCH (08:25)
[2022-12-19] MEDS: BLOOD SUGAR DIAGNOSTIC 1 EACH STRIP VI SCH ×4 (08:33→22:02)
[2022-12-19] MEDS: CLOPIDOGREL BISULFATE 75 MG TABLET PO SCH (08:35)
[2022-12-19] MEDS: FINASTERIDE (5 MG) 5 MG TABLET PO SCH (08:35)
[2022-12-19] MEDS: LINAGLIPTIN 5 MG TABLET PO SCH (08:36)
[2022-12-19] MEDS: ALLOPURINOL 100 MG TABLET PO SCH (08:36)
[2022-12-19] MEDS: APIXABAN 5 MG TABLET PO SCH ×2 (08:37→17:01)
[2022-12-19] MEDS: CLOTRIMAZOLE 1% 15 GM TUBE TP SCH ×2 (08:39→17:03)
--- NOTE | 2022-12-19 09:00 | NUR ---
THIRD LOADER NOTE REPORTED TO DR QUINONES THAT HR 62 ON COREG ,OK TO GIVE PER DR QUINONES
--- NOTE | 2022-12-19 10:23 | NUR ---
DIGITAL CONTENT MARKETING MANAGER NOTE ON PT ABLE TO AMBULATE WITH WALKER, ALSO REFUSED BLOOD DROWN TODAY
--- NOTE | 2022-12-19 10:41 | NUR ---
singing telegram performer note stingily refused life vest offered x3 and explained still strongly refused brother at bedside and help to explained to patient also dr newton rn coffee taster aware of it notified that patient refused blood drown
[2022-12-19] MEDS: INSULIN REGULAR, HUMAN 100 UNIT/ML 3 ML VIAL SQ PRN ×2 (11:40→17:17)
[2022-12-19 12:00] VITALS: BP 94/66
--- NOTE | 2022-12-19 14:34 | NUR ---
AUTOMOBILE CLUB TRAVEL COUNSELOR NOTE ROUNDS MADE ABLE TO EAT LUNCH SELF ,NOT IN DISTRESS
[2022-12-19 16:00] VITALS: BP 109/74
--- NOTE | 2022-12-19 18:25 | NUR ---
WHEEL AND PINION INSPECTOR NOTE PATIENT IN BED ,ALERT WITH CONFUSION , ON RA NO SOB NOTED AT THIS TIME, ON TELE MONITOR AFLUTTER HR 66, RT FA HL INTACT AND FLUSHED WELL , BED IN LOWEST AND LOCKED POSITION ,SAFETY MEASURE IMPLEMENTED, CALL LIGHT WITHIN REACH
--- NOTE | 2022-12-19 19:30 | NUR ---
RUBBER BELT SPLICER OPENING NOTE RECEIVED PT IN BED, AWAKE, ALERT AND ORIENTED X 2-3, WITH PERIODS OF CONFUSION. CURRENTLY ON RA, TOLERATING WELL, SATING @ 97%. NO S/SX OF ACUTE RESPI DISTRESS NOTED AT THIS TIME. NO SOB. BREATHING IS EVEN AND UNLABORED. RESPIRATORY CARE TECHNICIAN READS A FLUTTER WITH HR IN 70s. IV ACCESS ON RIGHT FOREARM #20g, PATENT, INTACT AND FLUSHES WELL. NO FLUIDS INFUSING. LIFEVEST REFUSED TO BE WORN BY PT AT THIS TIME. ALL SAFETY MEASURES IN PLACE: BED LOCKED IN LOW POSITION. BED ALARM ON . SR UP X 3, CALL LIGHT WITHIN REACH. WILL CONTINUE TO MONITOR.
[2022-12-19 20:00] VITALS: BP 103/71
--- NOTE | 2022-12-19 21:45 | NUR ---
RN NOTE WOUND PHOTOS TAKEN. WOUND CONSULT ORDERED.
[2022-12-19] MEDS: *INSULIN REGULAR(HUMULIN R)HUM 100 UNIT/ML VIAL SQ PRN (22:05)
--- NOTE | 2022-12-19 22:05 | NUR ---
RN NOTE PT REFUSED TO GET INSULIN. EXPLAINED THE IMPORTANCE OF MEDICAL COMPLIANCE, PT STILL FIRMLY REFUSED.
[2022-12-20] VITALS: BP 105/71
--- NOTE | 2022-12-20 00:31 | NUR ---
RN NOTE PT IS NON COMPLIANT RIGHT NOW. REFUSED VITAL SIGNS AND TELE BOX. CHARGE NURSE AWARE. WILL MONITOR FOR NOW.
[2022-12-20 04:00] VITALS: BP 132/81
--- NOTE | 2022-12-20 06:21 | NUR ---
CONSTRUCTION PROJECT MGR CLOSING NOTE NO SIGNIFICANT CHANGE T/O THE NIGHT. PT REMAINED STABLE. PERIODS OF CONFUSION NOTED T/O THE NIGHT. REORIENTATION GIVEN WHENEVER NEEDED. ALL DUE MEDS GIVEN. ALL NEEDS MET. PM CARE DONE. TURNED AND REPOSITIONED. WILL ENDORSE TO AM SHIFT NURSE FOR AGATHA.
--- NOTE | 2022-12-20 07:15 | NUR ---
ACCOUNTANT CONTROLLER OPENING NOTE Received patient sitting at the edge of the bed, wearing casual shirts with jacket, pants and shoes. Patient speaks Welsh with some basic bulgarian, A/O x2, with episodes of confusion. No signs and symptoms of sob or any distress, breathing evenly and unlabored. Patient has IV access on right forearm, C/D/I. Patient refused to wear his lifevest. Patient pointed his 2 bags of clothes and stuff and described he had them washed. he verbalizes "I'm going to the library". Patient was reoriented to time and place and advised to stay in his room. Patient complied. Safety protocol in placed, will continue to monitor the patient.
[2022-12-20] MEDS: PANTOPRAZOLE 40 MG TABLET.DR PO SCH (07:30)
--- NOTE | 2022-12-20 07:45 | NUR ---
Accucheck was taken as scheduled. Glucose reading at 157. Patient refused 2 units of regular insulin
[2022-12-20 08:00] VITALS: BP 112/68
[2022-12-20] MEDS: BLOOD SUGAR DIAGNOSTIC 1 EACH STRIP VI SCH (08:08)
--- NOTE | 2022-12-20 09:06 | NUR ---
WOUND CARE CONSULT: RECEIVED ANOTHER CONSULT FOR LOWER EXTREMITY DRY WOUNDS, PRESENT ON ADMISSION. DEFER TO DPM CURRENTLY ON CASE.
[2022-12-20] MEDS: CLOPIDOGREL BISULFATE 75 MG TABLET PO SCH (09:31)
[2022-12-20] MEDS: CHOLECALCIFEROL 1,000 UNIT TABLET (VIT D3) PO SCH (09:31)
[2022-12-20] MEDS: ATORVASTATIN 40 MG TABLET PO SCH (09:31)
[2022-12-20] MEDS: CLOTRIMAZOLE 1% 15 GM TUBE TP SCH (09:31)
[2022-12-20] MEDS: LINAGLIPTIN 5 MG TABLET PO SCH (09:32)
[2022-12-20] MEDS: ASPIRIN 81 MG TAB.CHEW PO SCH (09:32)
[2022-12-20] MEDS: OXYBUTYNIN CHLORIDE ER 5 MG TAB PO SCH (09:33)
[2022-12-20 09:35] VITALS: BP 112/68
[2022-12-20] MEDS: CARVEDILOL 3.125 MG TABLET PO SCH (09:35)
[2022-12-20] MEDS: ALLOPURINOL 100 MG TABLET PO SCH (09:35)
[2022-12-20] MEDS: FINASTERIDE (5 MG) 5 MG TABLET PO SCH (09:35)
[2022-12-20] MEDS: TAMSULOSIN 0.4 MG CAP.SR.24H PO SCH (09:35)
[2022-12-20] MEDS: APIXABAN 5 MG TABLET PO SCH (09:39)
--- NOTE | 2022-12-20 10:00 | NUR ---
Patient started to get confused again and decided to go AMA at 0955. Prior to AMA, patient was observed to go in and out of his room 118-1. Patient was reoriented and redirected to his unit. Patient was not compliant and decided to stay out of the room 118-1. Three RNs with a security personnel went on to convince the patient to go back to his room, (one RN speaks Tamazight) but to no avail. The next of kin, brother Mamadou was immediately called via phone for assistance who told the nurse "you can let him go, he knows how to take the bus". Patient was asked to walk around the hallway to assess ambulation. Patient was able to walk with ease carrying his 2 bags of belongings using left and right hands. Patient signed the AMA form and left the [facility] unit AD OPERATIONS SPECIALIST and a security personnel. Charge nurse, heel caser & MD informed. [employer] returned to supply store room.
--- NOTE | 2022-12-20 11:38 | NUR ---
MAREK attempted to meet with pt. at bedside for homeless discharge planning. However, MAREK was notified by pt.'s nurse that pt. left against medical advice at around 9: 55 am today. Noted.
== END 2022-12-20 09:55 | disposition left against medical advice (07) | DRG 280 ==
LOC: ER 05:40 → EDSEX 05:40 → TELE 11:20 → TELE-TD 12-16 22:45 → TELE1 12-18 08:14 → MEDSG1 12-20 08:14
PROVIDERS: ADMIT Student in an Organized Health Care Education/Training Program; ATTEND Nurse Practitioner Family
DX: I50.23 Acute on chronic systolic (congestive) heart failure (principal); I21.A1 Myocardial infarction type 2; G93.41 Metabolic encephalopathy; N17.0 Acute kidney failure with tubular necrosis; I48.92 Unspecified atrial flutter; E44.0 Moderate protein-calorie malnutrition; I42.9 Cardiomyopathy, unspecified; D68.59 Other primary thrombophilia; I34.0 Nonrheumatic mitral (valve) insufficiency; H91.93 Unspecified hearing loss, bilateral; I69.398 Other sequelae of cerebral infarction; Z59.02 Unsheltered homelessness; Z68.32 Body mass index [BMI] 32.0-32.9, adult; E66.9 Obesity, unspecified; I27.22 Pulmonary hypertension due to left heart disease; D63.8 Anemia in other chronic diseases classified elsewhere; E11.9 Type 2 diabetes mellitus without complications; I25.10 Atherosclerotic heart disease of native coronary artery without angina pectoris; Z95.1 Presence of aortocoronary bypass graft; D50.9 Iron deficiency anemia, unspecified; E78.5 Hyperlipidemia, unspecified; N40.0 Benign prostatic hyperplasia without lower urinary tract symptoms; R53.1 Weakness; I73.9 Peripheral vascular disease, unspecified
CPT/HCPCS: 36415; 70450-TC; 71045-TC; 76770-TC; 80048-TC; 80053-TC; 80061-TC; 80076-TC; 81001; 82140-TC; 82607-TC; 82728-TC; 82962-TC; 83540-TC; 83735-TC; 84100-TC; 84443-TC; 84480; 84484-TC; 85025-TC; 87081-TC; 93307-TC; 93970-TC; 97112-TC; 97116-TC; 97530-TC; A4223; C9803; G0378; G0480; J0282; J1644; J1815; J1940; J3490; J7050; J7060

== ENCOUNTER 2022-12-26 23:58 | Inpatient (IN) | payer OTHER ==
[~2022-12-26] VITALS: Ht 162.6 cm; Wt 82.6 kg
[~2022-12-26 23:58] MED LIST: ALLO300T2 PO; ATOR40TA PO; CARV3.122 PO; CHOL100062 PO; CLOP75TA15 PO; FERR325T24 PO; FINA5TAB11 PO; FURO40TA5 PO; LINA5TAB PO; MAGN200T9 PO; OXYB10TA30 PO; PANT40TA49 PO; TAMS-12 PO; TRIA80CR12 TP
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
--- NOTE | 2022-12-27 00:24 | NUR ---
EMT AT PT'S BEDSIDE FOR EKG
[2022-12-27] MEDS ORDERED: IBUPROFEN 400 MG TABLET ONE (00:26)
[2022-12-27] MEDS ORDERED: IBUPROFEN 400 MG TABLET PO ONE (00:30)
--- NOTE | 2022-12-27 00:38 | NUR ---
IV MED G20 INSERTED ON RIGHT AC. BLOOD DRAWN AND SENT TO LAB
--- NOTE | 2022-12-27 00:47 | NUR ---
ENGINEERING PSYCHOLOGIST AT PT'S BEDSIDE
[2022-12-27 00:52] LABS: BASOPHILS % (AUTO) 0.5 % (0.0-2.0); EOSINOPHILS % (AUTO) 0.5 % (0.0-6.0); HEMATOCRIT 43 % (39-51); HEMOGLOBIN 13.9 g/dL (13.5-17.5); LYMPHOCYTES % (AUTO) 11.9 % (20.0-44.0); MEAN CORPUSCULAR HGB CONC 32 g/dl (31.0-36.0); MEAN CORPUSCULAR VOLUME 100 fL (80-96); MONOCYTES # (AUTO) 0.6 K/uL (0.1-1.30); MONOCYTES % (AUTO) 7.8 % (2.0-12.0); NEUTROPHILS # (AUTO) 6.5 K/uL (1.8-8.9); NEUTROPHILS % (AUTO) 79.3 % (43.0-81.0); PLATELET COUNT (AUTO) 159 K/uL (150-450); RED BLOOD CELL COUNT(AUTO) 4.32 MIL/uL (4.5-6.0); WHITE BLOOD COUNT (AUTO) 8.2 K/uL (4.3-11.0)
[2022-12-27 01:00] LABS: CALCIUM, SERUM 9.1 mg/dL (8.5-10.1); CARBON DIOXIDE 23 mmol/L (21-32); CHLORIDE 102 mmol/L (98-107); GLUCOSE 132 mg/dL (74-106); POTASSIUM 4.7 mmol/L (3.5-5.1); SODIUM SERUM 137 mmol/L (136-145); UREA NITROGEN, BLOOD 45 mg/dL (7-18)
[2022-12-27 01:06] LABS: ALANINE AMINOTRANSFERASE 54 U/L (12-78); ALBUMIN 3.3 g/dL (3.4-5.0); ALKALINE PHOSPHATASE 99 U/L (46-116); ASPARTATE AMINOTRANSFERASE 59 U/L (15-37); BILIRUBIN,DIRECT 0.2 mg/dL (0.0-0.2); BILIRUBIN,TOTAL 1.3 mg/dL (0.2-1.0); TOTAL PROTEIN, SERUM 7.8 g/dL (6.4-8.2)
--- NOTE | 2022-12-27 01:11 | NUR ---
CRITICAL LAB RESULT TROPONIN 341 DR PRAJAPATI DO AWARE
--- NOTE | 2022-12-27 01:16 | NUR ---
COVID ANTIGEN SWAB COLLECTED AND SENT TO LAB
[2022-12-27] MEDS ORDERED: ASPIRIN 325 MG TABLET PO ONE (01:30)
[2022-12-27] MEDS ORDERED: ASPIRIN 325 MG TABLET ONE (01:59)
[2022-12-27] MEDS ORDERED: MAGNESIUM HYDROXIDE 30 ML UDC PO PRN (02:30)
[2022-12-27] MEDS ORDERED: DEXTROSE 50%-WATER 50 ML DISP.SYRIN IV PRN (02:30)
[2022-12-27] MEDS ORDERED: ACETAMINOPHEN 325 MG TABLET PO PRN (02:30)
[2022-12-27] MEDS ORDERED: MAG HYDROX/AL HYDROX/SIMETH 30 ML UDC PO PRN (02:30)
[2022-12-27] MEDS ORDERED: Z GUARD REMEDY 4 OZ OINT TP PRN (02:30)
[2022-12-27] MEDS ORDERED: ONDANSETRON HCL/PF 4 MG/2 ML VIAL IVP PRN (02:30)
[2022-12-27] MEDS ORDERED: ZOLPIDEM TARTRATE 5 MG TABLET PO PRN (02:30)
--- NOTE | 2022-12-27 03:08 | NUR ---
VICE PRESIDENT OF SALES AT BEDSIDE
--- NOTE | 2022-12-27 07:00 | NUR ---
RECEIVED PT FROM LULU DEL RIO AT [facility]LEEPY NO DISTERES AWAKE AND FALLOW COMMAND
--- NOTE | 2022-12-27 07:33 | NUR ---
ACCUCKECK DONE 170
[2022-12-27] MEDS: BLOOD SUGAR DIAGNOSTIC 1 EACH STRIP IN SCH ×4 (07:37→21:58)
--- NOTE | 2022-12-27 07:40 | NUR ---
REPORT GIVEN TO LEIDY DEL RIO FOR AGATHA.
--- NOTE | 2022-12-27 07:45 | NUR ---
PMD HERE CAME AND SEE PT SPOOK WITH PT
[2022-12-27] MEDS ORDERED: PANTOPRAZOLE 40 MG TABLET.DR PO ONE (07:59)
[2022-12-27] MEDS: PANTOPRAZOLE 40 MG TABLET.DR PO SCH (08:03)
--- NOTE | 2022-12-27 08:07 | NUR ---
TO ROOM 323-1 VIA [facility] VS AND CONDITION
--- NOTE | 2022-12-27 08:30 | NUR ---
[employer]ET[employer] NOTES PT ARRIVED AT UNIT VIA GURNEY AT 0830 IN STABLE CONDITION. PT ALERT/ORIENTED X4, FRENCH SPEAKING. FULL CODE WITH NKA. NO S/SX OF PAIN AT THIS TIME. ON ROOM AIR TOLERATING WELL. BREATHING EVEN AND UNLABORED. IV ACCESS IN RAC #20G SL. CONTINENT X2 WITH BRP. FALL SAFETY MEASURES IN PLACED, BBED LOCKED IN LOWEST POSITION, SIDE RAILS UP X2, CALL LIGHT WITHIN REACH. WILL ADMINISTER SCHEDULED MEDS AND CONTINUE TO OBSERVE FOR AGATHA. SKIN ASSESSMENT DONE AND ALL BELONGINGS CHECKED AND SIGNED.
[2022-12-27] MEDS ORDERED: HEPARIN INFUSION/D5W 500 ML IV PRN (09:00)
[2022-12-27] MEDS: ALLOPURINOL 100 MG TABLET PO SCH (10:06)
[2022-12-27] MEDS: CHOLECALCIFEROL 1,000 UNIT TABLET (VIT D3) PO SCH (10:06)
[2022-12-27] MEDS: TAMSULOSIN 0.4 MG CAP.SR.24H PO SCH (10:07)
[2022-12-27] MEDS: CARVEDILOL 3.125 MG TABLET PO SCH ×2 (10:07→17:36)
[2022-12-27] MEDS: LINAGLIPTIN 5 MG TABLET PO SCH (10:07)
[2022-12-27] MEDS: CLOPIDOGREL BISULFATE 75 MG TABLET PO SCH (10:07)
[2022-12-27] MEDS: ATORVASTATIN 40 MG TABLET PO SCH (10:07)
[2022-12-27] MEDS: FINASTERIDE (5 MG) 5 MG TABLET PO SCH (10:07)
[2022-12-27] MEDS: FERROUS SULFATE (325 MG) 325 MG/TAB TABLET PO SCH (10:07)
[2022-12-27] MEDS: ASPIRIN 81 MG TAB.CHEW PO SCH (10:10)
--- NOTE | 2022-12-27 10:15 | NUR ---
WOUND CARE CONSULT: PT EATING BREAKFAST AT THIS TIME. ADMISSION PHOTOS INDICATE THIGH AND LOWER LEG WOUNDS, PRESENT ON ADMISSION. DR DYSON AND DR TIMMONS CALLED FOR SURGICAL AND DPM CONSULTS. IN AGREEMENT WITH PLAN OF CARE.
[2022-12-27] MEDS: FUROSEMIDE 100 MG/10 ML VIAL IV SCH ×3 (10:44→17:00)
[2022-12-27 10:56] VITALS: BP 116/76
[2022-12-27] MEDS ORDERED: HEPARIN SODIUM, PORCINE 5000 UNITS/1 ML VIAL IV ONE (11:30)
[2022-12-27] MEDS: INSULIN REGULAR, HUMAN 100 UNIT/ML 3 ML VIAL SQ PRN ×2 (12:06→22:01)
--- NOTE | 2022-12-27 15:30 | NUR ---
SS consult requested for homelessness. SW will follow up at a later time.
[2022-12-27 15:49] VITALS: BP 86/57
--- NOTE | 2022-12-27 18:30 | NUR ---
RNNOTES FUROSEMIDE TIMEOUT. RE ORDERED WITH PHARMACY.
--- NOTE | 2022-12-27 18:37 | NUR ---
RN NOTES UNABLE TO DRAW BLOOD FOR PPT BY MEDICAL RESEARCH TECH AFTER FEW ATTEMPTS. MEDICAL RESEARCH TECH WILL COME BACK TO TRY AGAIN.
--- NOTE | 2022-12-27 18:49 | NUR ---
STEAM SHOVEL ENGINEER CLOSING NOTES PT RESTING WELL IN BED IN STABLE CONDITION. PT ALERT/ORIENTED X3, CONFUSED AT TIMES, KINYARWANDA SPEAKING. FULL CODE WITH NKA. NO S/SX OF PAIN AT THIS TIME. ON ROOM AIR TOLERATING WELL. BREATHING EVEN AND UNLABORED. ON TELE MONITOR SR 81. IV ACCESS IN RAC #20G SL RUNNING HEPARIN DRIP AT 1200 UNITSA/ML/HR. AND RIGHT WRIST 22 G SL.CONTINENT X2 WITH BRP. FALL SAFETY MEASURES IN PLACED, BED LOCKED IN LOWEST POSITION, SIDE RAILS UP X2, CALL LIGHT WITHIN REACH. WAITING FOR NEXT PPT LAB DRAW. ALL MEDS GIVEN ORDERED. WILL ENDORSE TO NEXT SHIFT.
[2022-12-27] MEDS ORDERED: FUROSEMIDE 100 MG/10 ML VIAL IV ONE (19:00)
--- NOTE | 2022-12-27 19:15 | NUR ---
MATERNITY FLOOR SUPERVISOR NOTES RECEIVED PATIENT LYING ON BED,A/O X 3=4,KYRGYZ SPEAKING.SALINE LOCK LEFT WRIST INTACT AND PATENT,WITH RIGHT AC SALINE LOCK,INFUSING HEPARIN DRIP AT 1200U/24ML PER HOUR RATE. PER REPORT,DROP WIRE ALINER TRIED TO DRAW BLOOD FOR PTT AT 1730,BUT UNSUCCESSFUL,VERY HARD STICK,CANT FIND VEIN. RETRIED AGAIN AT 1930,STILL UNSUCCESSFUL AND PATIENT DOESNT WANT TO BE STICK AGAIN.CHARGE NURSE TOREY MADE AWARE AND ADVISE TO GET [facility]LINE. NURSING SULFONATOR OPERATOR MADE AWARE AND CALLED [facility]LINE FOR THAT MATTER.FALL RISK,BED ON LOWEST POSITION AND LOCKED,BED ALARM,CALL LIGHT IN REACH,NEEDS ANTICIPATED.
[2022-12-27 20:00] VITALS: BP 110/78
--- NOTE | 2022-12-27 20:35 | NUR ---
MANAGER ENVIRONMENTAL NOTES TROLLEY WIRE INSTALLER DR QUINONES WAS PAGE.
--- NOTE | 2022-12-27 20:45 | NUR ---
SECURITY PATROL DRIVER NOTES DR QUINONES ANSWER BACK WITH THE PAGE,MADE AWARE OF PATIENT REFUSAL TO BE STICK FOR PTT BLOOD DRAW, WITH ORDER TO DISCONTINUE HEPARIN DRIP THIS TIME.NO LOVENOX ORDER. PHARMACIST OBINNA MADE AWARE.
[2022-12-27] MEDS: NEOMY SULF/BACITRAC ZN/POLY 15 GM TUBE TP SCH (21:30)
--- NOTE | 2022-12-27 21:30 | NUR ---
STATISTICAL ANALYST NOTES ACCU-CHECK BLOOD SUGAR CHECK 158MG/DL,COVERED WITH HUMULIN R 3 UNITS PER SLIDING SCALE.
[2022-12-28] VITALS: BP 123/74
[2022-12-28 04:00] VITALS: BP 108/70
--- NOTE | 2022-12-28 05:15 | NUR ---
TICKET PRINTER NOTES REFUSED BLOOD DRAW THIS MORNING.EXPLAINED RISK AND BENEFITS FOR HAVING BLOOD DRAW FOR TODAYS BLOOD WORK UP BUT STILL REFUSED.
--- NOTE | 2022-12-28 05:45 | NUR ---
PATIENT CARE PROVIDER NOTES ACCU-CHECK BLOOD SUGAR CHECK 105,NO INSULIN COVERAGE.
[2022-12-28] MEDS: BLOOD SUGAR DIAGNOSTIC 1 EACH STRIP IN SCH ×4 (06:19→21:45)
--- NOTE | 2022-12-28 06:29 | NUR ---
TAP BUILDER NOTES FAIRLY RESTED AT NIGHT,CALM AN QUIET ,REFUSE BLOOD DRAW THIS MORNING,IN NO ACUTE DISTRESS.WILL ENDORSE FOR CONTINUITY OF CARE.
--- NOTE | 2022-12-28 07:00 | NUR ---
RABIES INSPECTOR OPENING NOTES: RECEIVED PT IN BED AWAKE, ALERT AND ORIENTED X 3-4 AND ABLE TO MAKE NEEDS KNOWN, NO SOB OR CARDIAC DISTRESS NOTED, DENIES PAIN AT THIS TIME. ON ROOM AIR ON TELE MONITOR WITH CURRENT READING OF A FLUTTER N@57 BPM. IV ACCESS ON LEFT WRIST GAUGE 22 PATENT, INTACT AND SALINE LOCKED. SAFETY MEASURES MAINTAINED: BED LOCKED AND IN LOWEST POSITION, SIDE RAILS UP X 2. CALL LIGHT IN EASY REACH AND WILL MONITOR FOR ANY SIGNIFICANT CHANGES.
[2022-12-28] MEDS: PANTOPRAZOLE 40 MG TABLET.DR PO SCH (07:29)
[2022-12-28 08:00] VITALS: BP 110/78
[2022-12-28] MEDS: ASPIRIN 81 MG TAB.CHEW PO SCH (09:04)
[2022-12-28] MEDS: TAMSULOSIN 0.4 MG CAP.SR.24H PO SCH (09:05)
[2022-12-28] MEDS: CLOPIDOGREL BISULFATE 75 MG TABLET PO SCH (09:05)
[2022-12-28] MEDS: CHOLECALCIFEROL 1,000 UNIT TABLET (VIT D3) PO SCH (09:05)
[2022-12-28] MEDS: ATORVASTATIN 40 MG TABLET PO SCH (09:05)
[2022-12-28] MEDS: LINAGLIPTIN 5 MG TABLET PO SCH (09:05)
[2022-12-28] MEDS: FINASTERIDE (5 MG) 5 MG TABLET PO SCH (09:05)
[2022-12-28] MEDS: ALLOPURINOL 100 MG TABLET PO SCH (09:05)
[2022-12-28] MEDS: FERROUS SULFATE (325 MG) 325 MG/TAB TABLET PO SCH (09:05)
[2022-12-28] MEDS: CARVEDILOL 3.125 MG TABLET PO SCH ×2 (09:06→17:32)
[2022-12-28] MEDS: NEOMY SULF/BACITRAC ZN/POLY 15 GM TUBE TP SCH (09:28)
[2022-12-28] MEDS: INSULIN REGULAR, HUMAN 100 UNIT/ML 3 ML VIAL SQ PRN ×3 (12:04→22:04)
[2022-12-28 16:00] VITALS: BP 99/64
--- NOTE | 2022-12-28 18:55 | NUR ---
RN SOCIAL SERVICES CLOSING NOTES: PT IN BED ASLEEP, EASILY AROUSED WITH STIMULI. PT A/O X 3 WITH EPISODES OF FORGETFULNESS. NO SOB OR CARDIAC DISTRESS NOTED.ON ROOM AIR AND TOLERATING WELL ON SENIOR QA AUTOMATION ENGINEER WITH CURRENT READING OF:A FLUTTER @83 BPM. IV ACCESS ON RAC GAUGE 20, L WRIST GAUGE 22 PATENT, INTACT AND SALINE LOCKED. PT REFUSED BLOOD DRAW. WOUND CARE TREATMENT DONE AND PT TOLERATED WELL. ON BLOOD SUGAR MONITORING AND INSULIN ADMINISTRATION PER SLIDING SCALE. SAFETY MEASURES MAINTAINED: BED LOCKED AND IN LOWEST POSITION, SIDERAILS UP X 2. CALL LIGHT IN EASY REACH. ENDORSED TO RESOURCE COORDINATOR RN FOR CONTINUITY OF CARE.
--- NOTE | 2022-12-28 19:20 | NUR ---
MACHINE CAPTAIN NOTES RECEIVED SITTING ON EDGE OF BED,A/O X 3-4,MACEDONIAN SPEAKING WITH LITTLE WALLISIAN.SALINE LOCK RIGHT AC INTACT AND PATENT AND LEFT WRIST #22 FLUSHABLE WITH NS.AMBULATE WITH STEADY.BREATHING REGULAR,NOT IN ANY FORM OF DISTRESS.VERBALIZED HE WANTS TO GO HOME,PATIENT IS HOMELESS..ALL BELONGINGS IN THE PLASTIC BAG.EXPLAINED RISK AND BENEFITS OF STAYING FOR HIS SAFETY.HE CALMS DOWN AND CLEAN HIS JACKET ON THE SINK.WILL CONTINUE TO MONITOR STATUS.
[2022-12-28 19:59] VITALS: BP 134/74
[2022-12-28 20:00] VITALS: BP_SYST 134; BP_SYST 137; BP_DIAS 74
--- NOTE | 2022-12-28 22:00 | NUR ---
ANALYTICAL TECH NOTES ACCU-CHECK BLOOD SUGAR CHECK 167MCOVERED WITH HUMULIN R 3UNITS PER SLIDING SCALE,SNACKS PROVIDED AT BEDSIDE.
[2022-12-29] VITALS: BP 122/83
[2022-12-29] MEDS: BLOOD SUGAR DIAGNOSTIC 1 EACH STRIP IN SCH ×2 (05:36→12:22)
--- NOTE | 2022-12-29 05:41 | NUR ---
DIE CASTING SUPERVISOR NOTES ACCU-CHECK BLOOD SUGAR CHECK 129,NO INSULIN COVERAGE.
--- NOTE | 2022-12-29 06:36 | NUR ---
CHEMICAL LABORATORY SCIENTIST NOTES NO SIGNIFICANT CHANGE IN STATUS,FOLLOWED ADVISE TO STAY ON BED,IN THE ROOM TILL DISCHARGE ORDER GIVEN BY HOSPITALIST,HE WANTED TO GO HOME BUT CONDITION [place] HES UNSTABLE..MED COMPLIANT,CALL LIGHT IN REACH,NEEDS ANTICIPATED
--- NOTE | 2022-12-29 07:30 | NUR ---
PATIENT RECEIVED RESTING COMFORTABLY IN BED. NO S/S OR C/O PAIN OR DISTRESS NOTED. SIDE RAILS UP X2, CALL LIGHT LEFT WITHIN REACH. WILL CONTINUE PLAN OF CARE.
[2022-12-29] MEDS: ASPIRIN 81 MG TAB.CHEW PO SCH (08:09)
[2022-12-29] MEDS: FERROUS SULFATE (325 MG) 325 MG/TAB TABLET PO SCH (08:09)
[2022-12-29] MEDS: LINAGLIPTIN 5 MG TABLET PO SCH (08:09)
[2022-12-29] MEDS: ALLOPURINOL 100 MG TABLET PO SCH (08:09)
[2022-12-29] MEDS: CLOPIDOGREL BISULFATE 75 MG TABLET PO SCH (08:10)
[2022-12-29] MEDS: TAMSULOSIN 0.4 MG CAP.SR.24H PO SCH (08:10)
[2022-12-29] MEDS: PANTOPRAZOLE 40 MG TABLET.DR PO SCH (08:10)
[2022-12-29] MEDS: ATORVASTATIN 40 MG TABLET PO SCH (08:10)
[2022-12-29] MEDS: CHOLECALCIFEROL 1,000 UNIT TABLET (VIT D3) PO SCH (08:10)
[2022-12-29] MEDS: FINASTERIDE (5 MG) 5 MG TABLET PO SCH (08:11)
[2022-12-29] MEDS: CARVEDILOL 3.125 MG TABLET PO SCH (08:57)
[2022-12-29] MEDS: NEOMY SULF/BACITRAC ZN/POLY 15 GM TUBE TP SCH (08:57)
[2022-12-29 10:00] VITALS: BP 135/79
[2022-12-29] MEDS: INSULIN REGULAR, HUMAN 100 UNIT/ML 3 ML VIAL SQ PRN (12:21)
--- NOTE | 2022-12-29 15:21 | NUR ---
AZURE DEVELOPER NOTE USED THE [email or web address] TO INTERPRET APPLICATION DEVELOPMENT SPECIALIST SHERIF AGENT NO. [id number]
--- NOTE | 2022-12-29 17:16 | NUR ---
AMA PATIENT LEAVING AGAINST MEDICAL ADVICE. NURSING TEACHING PERFORMED TO INSTRUCT PATIENT ON THE IMPORTANCE OF STAYING IN THE HOSPITAL BUT THE PATIENT ADAMANTLY AND AGGRESSIVELY REFUSED. MD MADE AWARE. IV REMOVED WITH CATHETER INTACT. PT ESCORTED OUT WITH ALL PERSONALIZED BELONGINGS ACCOMPANIED BY STAFF.
[2022-12-29 18:59] LABS: CREATININE, URINE 121.2 MG/DL (30.0-125.0)
[2022-12-29 19:16] LABS: BILIRUBIN,URINE NEGATIVE (NEGATIVE); COLOR,URINE YELLOW (YELLOW); LEUKOCYTE ESTERASE ,URINE NEGATIVE (NEGATIVE); NITRITE, URINE NEGATIVE (NEGATIVE); PH,URINE 5.5 (5.0-8.0); PROTEIN,URINE 1+ mg/dl (NEGATIVE); UGLUCOSE NEGATIVE (NEGATIVE)
[2022-12-29 19:24] LABS: RBC,URINE 0-2 /HPF (0-2); WBC,URINE 0-2 /HPF (0-3)
[2022-12-29 19:25] LABS: BACTERIA,URINE None seen /HPF (None Seen); SQUAMOUS EPITHELIAL CELL,UR 0-2 /HPF (None Seen); URINE AMORPHOUS URATE Many /HPF (None Seen)
== END 2022-12-29 16:50 | disposition home or self-care (01) | DRG 280 ==
LOC: ER 12-27 00:07 → TELE 12-27 07:59
PROVIDERS: ADMIT Internal Medicine; ATTEND Internal Medicine
DX: I11.0 Hypertensive heart disease with heart failure (principal); I21.A1 Myocardial infarction type 2; G93.41 Metabolic encephalopathy; I50.23 Acute on chronic systolic (congestive) heart failure; N17.0 Acute kidney failure with tubular necrosis; D68.59 Other primary thrombophilia; E44.0 Moderate protein-calorie malnutrition; I48.92 Unspecified atrial flutter; I42.9 Cardiomyopathy, unspecified; Z59.00 Homelessness unspecified; Y04.2XXA Assault by strike against or bumped into by another person, initial encounter; Y92.522 Railway station as the place of occurrence of the external cause; Z98.890 Other specified postprocedural states; Z79.02 Long term (current) use of antithrombotics/antiplatelets; Z79.84 Long term (current) use of oral hypoglycemic drugs; Z79.899 Other long term (current) drug therapy; E78.5 Hyperlipidemia, unspecified; I34.0 Nonrheumatic mitral (valve) insufficiency; I27.20 Pulmonary hypertension, unspecified; Z86.73 Personal history of transient ischemic attack (TIA), and cerebral infarction without residual deficits; Z95.1 Presence of aortocoronary bypass graft; E11.9 Type 2 diabetes mellitus without complications; Z68.32 Body mass index [BMI] 32.0-32.9, adult; S80.222A Blister (nonthermal), left knee, initial encounter; X58.XXXA Exposure to other specified factors, initial encounter; Y92.9 Unspecified place or not applicable; Z60.3 Acculturation difficulty; I25.10 Atherosclerotic heart disease of native coronary artery without angina pectoris; E66.9 Obesity, unspecified; D63.8 Anemia in other chronic diseases classified elsewhere; I48.91 Unspecified atrial fibrillation; Z91.199 Patient's noncompliance with other medical treatment and regimen due to unspecified reason
CPT/HCPCS: 36415; 71045-TC; 80048-TC; 80076-TC; 81001; 82570-TC; 82962-TC; 84300-TC; 84484-TC; 85025-TC; 85730-TC; 87081-TC; A4223; C9803; G0378; J1644; J1815; J1940